=== PATIENT | male | born 2000 | race Caucasian/White ===

== ENCOUNTER 2023-01-10 18:13 | Emergency (ER) | payer OTHER ==
[2023-01-10 18:30] VITALS: O2SAT 100
[2023-01-10 18:41] LABS: BILIRUBIN,URINE NEGATIVE (NEGATIVE); GLUCOSE, URINE (UA) NEGATIVE (NEGATIVE); KETONES,URINE (UA) NEGATIVE (NEGATIVE); LEUKOCYTE ESTERASE, URINE TRACE (NEGATIVE); NITRITE,URINE NEGATIVE (NEGATIVE); OCCULT BLOOD,URINE TRACE-INTA (NEGATIVE); PROTEIN,URINE NEGATIVE (NEGATIVE); UROBILINOGEN,URINE 0.2 (NORMAL) E.U./dL (NORMAL)
[2023-01-10 18:46] LABS: CLARITY,URINE CLEAR (CLEAR)
[2023-01-10 18:55] LABS: RBC,URINE 0-5 /HPF (0-5); SQUAMOUS EPITHELIAL CELL,UR NONE SEEN (<= Few)
[2023-01-10 18:56] LABS: BACTERIA,URINE None Seen /HPF (None Seen); SPERM,URINE PRESENT
[2023-01-10] MEDS ORDERED: LIDOCAINE 1% 2 ML VIAL MC ONE (19:31)
[2023-01-10] MEDS ORDERED: cefTRIAXone 1 GM VIAL IM STA (19:31)
--- NOTE | 2023-01-10 19:55 | ED Physician Documentation ---
History of Present Illness - Stated complaint Stated Complaint: - Chief complaint Chief Complaint: Abd Pain - History obtained from History obtained from: Patient - History of Present Illness Timing: Other (1 month) Pain level max: 2 Pain level now: 1 - Additonal information Additional information: Patient is a 22-year-old male who presents to the emergency department with intermittent dysuria x 1 month. No penile discharge. No change in sexual partners. He states he and his now first got together back in August and then remarried in October. No abdominal pain, back pain. She has not had any symptoms. No nausea or vomiting. No rectal pain. No pain with bowel movements. Review of Systems Constitutional: denies: Fever, Chills Respiratory: denies: Cough GI: denies: Nausea, Vomiting, Diarrhea : reports: Dysuria, Frequency, Hesitancy PD PAST MEDICAL HISTORY - Past Medical History Past Medical History: Yes Musculoskeletal: Chronic back pain - Past Surgical History Past Surgical History: Yes General: Appendectomy HEENT: Tonsil/Adenoidectomy - Present Medications Home Medications: Ambulatory Orders Medication Instructions Recorded Confirmed cephALEXin [Keflex] 500 mg PO Q6H #28 cap 01/10/23 - Allergies Allergies/Adverse Reactions: Allergies Allergy/AdvReac Type Severity Reaction Status Date / Time No Known Drug Allergies Allergy Verified 01/10/23 18:23 - Social History Does the pt smoke?: Yes Smoking Status: Current every day smoker Does the pt drink ETOH?: Yes Does the pt have substance abuse?: No - Immunizations Immunizations are current?: Yes - POLST Patient has POLST: No PD ED PE NORMAL - Vitals Vital signs reviewed: Yes - General General: Alert and oriented X 3, No acute distress - HEENT HEENT: Moist mucous membranes - Neck Neck: Supple, no meningeal sign - Cardiac Cardiac: RRR - Respiratory Respiratory: No respiratory distress, Clear bilaterally - Abdomen Abdomen: Soft, Non tender, Non distended - Back Back: No CVA TTP, No spinal TTP - Derm Derm: Warm and dry - Neuro Neuro: Alert and oriented X 3 - Psych Psych: Normal mood, Normal affect Results - Vitals Vitals: Vital Signs - 24 hr 01/10/23 01/10/23 18:18 20:03 Temperature 36.6 C 36.5 C Heart Rate 82 80 Respiratory 16 16 Rate Blood Pressure 138/87 H 130/82 H O2 Saturation 100 100 Oxygen O2 Source Room air - Labs Labs: Laboratory Tests 01/10/23 18:32 Urine Color YELLOW Urine Clarity CLEAR Urine pH 6.0 Ur Specific [place] 1.015 Urine Protein NEGATIVE Urine Glucose (UA) NEGATIVE Urine Ketones NEGATIVE Urine Occult Blood TRACE-INTA Urine Nitrite NEGATIVE Urine Bilirubin NEGATIVE Urine Urobilinogen 0.2 (NORMAL) Ur Leukocyte Esterase TRACE H Urine RBC 0-5 Urine WBC 11-25 H Ur Squamous Epith Cells NONE SEEN Urine Bacteria None Seen Urine Sperm PRESENT Ur Microscopic Review INDICATED Urine Culture Comments INDICATED PD Medical Decision Making - ED course Complexity details: reviewed results, re-evaluated patient, considered differential, d/w patient ED course: Patient is a 22-year-old male who presents to the emergency department with dysuria. Urinalysis does show white blood cells but no bacteria. Possible urethritis? Urine was sent for gonorrhea and Chlamydia testing. No change in sexual partners. No STI exposure that he is aware of. His partner is asymptomatic. Given a dose of Rocephin here. Will place on Keflex for home. Will have him follow-up with his PCP for further care. Patient counseled regarding signs and symptoms for which I believe and urgent re-evaluation would be necessary. Patient with good understanding of and agreement to plan and is comfortable going home at this time This document was made in part using voice recognition software. While efforts are made to proofread this document, sound alike and grammatical errors may occur. Departure - Departure Disposition: Home, Self Care Clinical Impression: UTI (urinary tract infection) Qualifiers: Urinary tract infection type: acute cystitis Hematuria presence: without hematuria Qualified Code(s): N30.00 - Acute cystitis without hematuria Condition: Good Instructions: ED UTI Cystitis Male Follow-Up: BIRD GIORDANO MD [Primary Care Provider] - Within 1 week Prescriptions: cephALEXin [Keflex] 500 mg PO Q6H #28 cap Comments: Your prescriptions were sent to [facility] in [place]. Please follow-up with your doctor for further care. Please return if you worsen. As we discussed, your urinalysis was sent for gonorrhea and Chlamydia testing as well. We will call you if these are positive. Please take all antibiotics until gone even if you are feeling better. You were given a dose of Rocephin here tonight. Forms: PCP List Discharge Date/Time: 01/10/23 20:02
[2023-01-10 20:08] VITALS: BP 130/82
[2023-01-10 21:34] LABS: NEISSERIA GONORRHOEAE DNA NEGATIVE (NEGATIVE); TRICHOMONAS VAGINALIS DNA NEGATIVE (NEGATIVE)
[2023-01-10 21:36] LABS: CHLAMYDIA TRACHOMATIS DNA POSITIVE (NEGATIVE)
== END 2023-01-10 20:02 | disposition home or self-care (01) ==
LOC: ED 18:13
DX: N30.00 Acute cystitis without hematuria (principal); F17.200 Nicotine dependence, unspecified, uncomplicated; Z11.3 Encounter for screening for infections with a predominantly sexual mode of transmission
CPT/HCPCS: 81001; 81003; 87086; 87491; 87591; 87661; 96372; 99283

== ENCOUNTER 2023-08-04 17:52 | Emergency (ER) | payer OTHER ==
[2023-08-04 18:26] LABS: RAPID STREP SCREEN Negative (Negative)
[2023-08-04] MEDS: ACETAMINOPHEN 325 MG TABLET PO STA (18:53)
[2023-08-04 19:33] LABS: B. PARAPERTUSSIS- RESP PCR PAN NOT DETECTED; B. PERTUSSIS- RESP PCR PANEL NOT DETECTED; C. PNEUMONIAE- RESP PCR PANEL NOT DETECTED; CORONAVIRUS 229E-RESP PCR NOT DETECTED; CORONAVIRUS HKU1-RESP PCR NOT DETECTED; CORONAVIRUS NL63-RESP PCR NOT DETECTED; CORONAVIRUS OC43-RESP PCR NOT DETECTED; HUMAN METAPNEUMOVIRUS NOT DETECTED; INFLUENZA A- RESP PCR PANEL NOT DETECTED; INFLUENZA B - RESP PCR PANEL NOT DETECTED; M. PNEUMONIAE- RESP PCR PANEL NOT DETECTED; PARAINFLUENZA VIRUS 1 NOT DETECTED; PARAINFLUENZA VIRUS 2 NOT DETECTED; PARAINFLUENZA VIRUS 3 NOT DETECTED; PARAINFLUENZA VIRUS 4 NOT DETECTED; RHINOVIRUS/ENTEROVIRUS NOT DETECTED; RSV- RESP PCR PANEL NOT DETECTED; SARS-CoV-2 -RESP PCR PANEL NOT DETECTED
--- NOTE | 2023-08-04 19:41 | ED Physician Documentation ---
History of Present Illness - Stated complaint Stated Complaint: VICENTE/FEVER/COUGH - Chief complaint Chief Complaint: Heent - History obtained from History obtained from: Patient - History of Present Illness Timing: Today Pain level max: 3 Pain level now: 3 - Additonal information Additional information: Patient is a 23-year-old male who presents to the emergency department with headache, fever, cough, congestion. Started today. Nothing makes it better or worse. No vomiting. No neck pain. No seizure activity. No abdominal pain. No diarrhea or constipation. No urinary symptoms. Has had a mild sore throat as well. Headache is mild, generalized in character, gradual onset. Review of Systems Constitutional: reports: Fever GI: denies: Vomiting, Diarrhea Skin: denies: Rash Musculoskeletal: denies: Neck pain, Back pain Neurologic: denies: Focal weakness, Numbness PD PAST MEDICAL HISTORY - Past Medical History Past Medical History: No Cardiovascular: None Respiratory: None Neuro: None Endocrine/Autoimmune: None GI: None : None HEENT: None Psych: None Musculoskeletal: None, Chronic back pain Derm: None - Past Surgical History Past Surgical History: Yes General: Appendectomy HEENT: Tonsil/Adenoidectomy - Present Medications Home Medications: Ambulatory Orders Medication Instructions Recorded Confirmed No Known Home Medications 08/04/23 08/04/23 - Allergies Allergies/Adverse Reactions: Allergies Allergy/AdvReac Type Severity Reaction Status Date / Time No Known Drug Allergies Allergy Verified 08/04/23 18:05 - Social History Does the pt smoke?: Yes Smoking Status: Current every day smoker Does the pt drink ETOH?: Yes Does the pt have substance abuse?: No - Immunizations Immunizations are current?: Yes - POLST Patient has POLST: No PD ED PE NORMAL - Vitals Vital signs reviewed: Yes - General General: Alert and oriented X 3, No acute distress, Well developed/nourished - HEENT HEENT: PERRL, Ears normal, Moist mucous membranes, Other (Mild posterior oropharyngeal erythema without tonsillar exudates. Uvula midline. Normal phonation. No trismus.) - Neck Neck: Supple, no meningeal sign, No adenopathy - Cardiac Cardiac: RRR, Strong equal pulses - Respiratory Respiratory: No respiratory distress, Clear bilaterally - Abdomen Abdomen: Soft, Non tender, Non distended - Back Back: No CVA TTP - Derm Derm: Warm and dry, No rash - Extremities Extremities: No calf tenderness / cord - Neuro Neuro: Alert and oriented X 3 - Psych Psych: Normal mood, Normal affect Results - Vitals Vitals: Vital Signs - 24 hr 08/04/23 08/04/23 08/04/23 17:56 18:40 19:23 Temperature 38.5 C H 37.6 C Heart Rate 84 89 Respiratory 16 16 Rate Blood Pressure 139/66 H 123/63 O2 Saturation 99 98 08/04/23 19:48 Temperature 37.6 C Heart Rate 80 Respiratory 16 Rate Blood Pressure 124/76 O2 Saturation 99 Oxygen O2 Source Room air - Labs Labs: Laboratory Tests 08/04/23 08/04/23 17:57 17:57 Nasal Adenovirus (PCR) NOT DETECTED Nasal B. parapertussis DNA (PCR) NOT DETECTED Nasal Coronavir 229E PCR NOT DETECTED Nasal Coronavir HKU1 PCR NOT DETECTED Nasal Coronavir NL63 PCR NOT DETECTED Nasal Coronavir OC43 PCR NOT DETECTED Nasal Enterovir/Rhinovir PCR NOT DETECTED Nasal Influenza B PCR NOT DETECTED Nasal Influenza A PCR NOT DETECTED Nasal Parainfluen 1 PCR NOT DETECTED Nasal Parainfluen 2 PCR NOT DETECTED Nasal Parainfluen 3 PCR NOT DETECTED Nasal Parainfluen 4 PCR NOT DETECTED Nasal RSV (PCR) NOT DETECTED Nasal B.pertussis DNA PCR NOT DETECTED Nasal C.pneumoniae (PCR) NOT DETECTED Jonathan Human Metapneumo PCR NOT DETECTED Nasal M.pneumoniae (PCR) NOT DETECTED Nasal SARS-CoV-2 (PCR) NOT DETECTED Group A Strep Rapid Negative PD Medical Decision Making - ED course Complexity details: reviewed results, re-evaluated patient, considered differential, d/w patient ED course: Patient is well-appearing, nontoxic. Tolerating p.o. without difficulty. Rapid strep is negative. Respiratory PCR is negative. No meningeal signs. Lungs are clear to auscultation bilaterally. No evidence of pneumonia. Abdomen is soft, nontender nondistended. No hepatomegaly. We will treat him as a viral syndrome. Continue supportive care and have him return if he worsens. Patient counseled regarding signs and symptoms for which I believe and urgent re- evaluation would be necessary. Patient with good understanding of and agreement to plan and is comfortable going home at this time This document was made in part using voice recognition software. While efforts are made to proofread this document, sound alike and grammatical errors may occ ur. Departure - Departure Disposition: 01 Home, Self Care Clinical Impression: Viral syndrome Fever Qualifiers: Fever type: unspecified Qualified Code(s): R50.9 - Fever, unspecified Condition: Good Instructions: ED Viral Syndrome Follow-Up: BIRD GIORDANO MD [Primary Care Provider] - Comments: Please drink plenty of fluids at home. You can use Motrin or Tylenol as needed for body aches and fever. Your strep test and respiratory panel are negative today. Please return for abdominal pain, inability to keep food or fluid down, or other new or worrisome symptoms. Forms: PCP List Discharge Date/Time: 08/04/23 19:54
[2023-08-04 19:51] VITALS: BP 124/76; O2SAT 99
== END 2023-08-04 19:54 | disposition home or self-care (01) ==
LOC: ED 17:52
DX: B34.9 Viral infection, unspecified (principal); F17.200 Nicotine dependence, unspecified, uncomplicated
CPT/HCPCS: 87070; 87430; 87633; 99283; A9270

== ENCOUNTER 2023-10-22 12:40 | Emergency (ER) | payer OTHER ==
[2023-10-22 13:03] VITALS: BP 125/67; O2SAT 100
--- NOTE | 2023-10-22 14:41 | ED Physician Documentation ---
History of Present Illness - Stated complaint Stated Complaint: LOWER BACK PX - Chief complaint Chief Complaint: Back Pain - Additonal information Additional information: 23-year-old male with no pertinent past medical history presents emergency department for 2 years of chronic lower back pain. He says he does not know what triggered this there has been no injuries or trauma to the lower back he has no history of back surgeries. Patient says over the last couple nights has gotten severely worse. Patient denies any urinary or stool incontinence no fevers or chills. He is able to ambulate without any difficulty no new weakness no unintentional weight loss. PD PAST MEDICAL HISTORY - Past Medical History Past Medical History: Yes Cardiovascular: None Respiratory: None Neuro: None Endocrine/Autoimmune: None GI: None : None HEENT: None Psych: None Musculoskeletal: Chronic back pain Derm: None - Past Surgical History Past Surgical History: Yes General: Appendectomy HEENT: Tonsil/Adenoidectomy - Present Medications Home Medications: Ambulatory Orders Medication Instructions Recorded Confirmed Cyclobenzaprine [Flexeril] 10 mg PO TID PRN 6 Days #20 tablet 10/22/23 - Allergies Allergies/Adverse Reactions: Allergies Allergy/AdvReac Type Severity Reaction Status Date / Time No Known Drug Allergies Allergy Verified 10/22/23 12:56 - Social History Does the pt smoke?: Yes Smoking Status: Current every day smoker Does the pt drink ETOH?: Yes Does the pt have substance abuse?: No - Immunizations Immunizations are current?: Yes - POLST Patient has POLST: No PD ED PE NORMAL - Vitals Vital signs reviewed: Yes - General General: Alert and oriented X 3, No acute distress, Well developed/nourished - HEENT HEENT: Atraumatic, PERRL - Neck Neck: Supple, no meningeal sign, No bony TTP - Respiratory Respiratory: No respiratory distress - Neuro Neuro: Alert and oriented X 3, locomotive supervisor 2-12 intact, No motor deficit, No sensory deficit, Normal speech Eye Opening: Spontaneous Motor: Obeys Commands Verbal: Oriented GCS Score: 15 - Psych Psych: Normal mood - Free text exam Free text exam: Neck and back are without deformity, external skin changes, or signs of trauma. Curvature of the cervical, thoracic, and lumbar spine are within normal limits. Bony features of the shoulders and hips are of equal height bilaterally. Posture is upright, gait is smooth, steady, and within normal limits. No tenderness noted on palpation of the spinous processes. Spinous processes are midline. Cervical, thoracic, and lumbar paraspinal muscles are not tender and are without spasm. No discomfort is noted with flexion, extension, and [id number] rotation of the cervical spine, full range of motion is noted. Full range of motion including flexion, extension, and [id number] rotation of the thoracic and lumbar spine are noted and without discomfort. Straight leg raise test is negative bilaterally. Sensation to the upper and lower extremities is normal bilaterally. No clonus is noted. Car Chaser strength is normal bilaterally. Dorsi/plantar flexion is normal bilaterally. Results - Vitals Vitals: Vital Signs - 24 hr 10/22/23 12:53 Temperature 36.7 C Heart Rate 55 L Respiratory 16 Rate Blood Pressure 125/67 O2 Saturation 100 Oxygen O2 Source Room air PD Medical Decision Making - ED course ED course: This patient presents with back pain most consistent with lumbago. Differential diagnoses includes lumbago versus musculoskeletal spasm / strain versus sciatica. Less likely sciatica as straight leg raise test was negative. No back pain red flags on history or physical. Presentation not consistent with malignancy (lack of history of malignancy, lack of B symptoms), fracture (no trauma, no bony tenderness to palpation), cauda equina (no bowel or urinary incontinence/retention, no saddle anesthesia, no distal weakness), AAA, viscus perforation, osteomyelitis or epidural abscess (no IVDU, vertebral tenderness), renal colic, pyelonephritis (afebrile, no CVAT, no urinary symptoms). Given the clinical picture, no indication for imaging at this time. Patient was understanding of this he said that he was hoping for a nonemergent MRI but I informed him unfortunately we are not able to do so here in the emergency department. He was given a prescription of Flexeril symptoms preferred pharmacy as well as a Toradol shot here in the emergency department and Tylenol. It was stressed the importance to follow-up with primary care provider for outpatient ongoing workup and patient taught return precautions. All questions answered patient ambulatory stable on feet and is safe for discharge at this time. Departure - Departure Disposition: 01 Home, Self Care Clinical Impression: Lumbago Qualifiers: Chronicity: chronic Back pain laterality: midline Sciatica presence: without sciatica Qualified Code(s): M54.50 - Low back pain, unspecified Instructions: ED Back Care Tips, Flexeril Prescriptions: Cyclobenzaprine [Flexeril] 10 mg PO TID PRN 6 Days #20 tablet PRN Reason: Spasms Comments: They have dressings with your care. As we discussed unfortunately you do not meet criteria for an emergency MRI. Please follow-up with your primary care provider for possible Ortho referral or spinal doctor referral for further evaluation outpatient workup for your chronic back pain. I have sent a prescription of Flexeril to your preferred pharmacy and recommend taking this only at nighttime before you go to bed to help with your back pain until you are able to get in with your primary care provider. Please come back to the ER if you are having any fevers or chills, urinary incontinence or bowel incontinence. Wishing you a speedy recovery. Discharge Date/Time: 10/22/23 15:01
[2023-10-22] MEDS: ACETAMINOPHEN 500 MG TABLET PO STA (14:51)
[2023-10-22] MEDS: KETOROLAC 30 MG/ML VIAL IM STA (14:51)
== END 2023-10-22 15:01 | disposition home or self-care (01) ==
LOC: ED 12:40
DX: M54.50 Low back pain, unspecified (principal); G89.29 Other chronic pain
CPT/HCPCS: 96372; 99281; 99283; A9270